=== PATIENT | female | born 1950 | race Caucasian/White ===

== ENCOUNTER 2018-11-12 12:43 | Emergency (ER) | payer MEDICARE, MEDICAID ==
[~2018-11-12] VITALS: Ht 154.9 cm; Wt 54.0 kg
[~2018-11-12 12:43] MED LIST: ASPI-1159 PO; BENA40TA9 PO; GLIM4TAB2 PO; METF-416 PO; RISP1TAB26 PO; SERT-112 PO; SIMV40TA5 PO; TRAZ-213 PO
[2018-11-12 12:58] VITALS: BP 135/87
[2018-11-12] MEDS ORDERED: BACITRACIN ZINC OINT UDPKT TOP ONE (16:00)
[2018-11-12] MEDS ORDERED: TETANUS, DIPHTHERIA, PERTUSSIS VAC/PF 0.5ML (>7YR OLD) IM ONE (16:00)
[2018-11-12] MEDS ORDERED: LIDOCAINE HCL/PF 1% 10 MG/ML 5ML VIAL IJ ONE (16:00)
== END 2018-11-12 17:04 | disposition home or self-care (01) ==
LOC: ER 12:43
DX: S61.216A Laceration without foreign body of right little finger without damage to nail, initial encounter (principal); F32.9 Major depressive disorder, single episode, unspecified; I10 Essential (primary) hypertension; E11.9 Type 2 diabetes mellitus without complications; J45.909 Unspecified asthma, uncomplicated; E78.00 Pure hypercholesterolemia, unspecified; Z79.899 Other long term (current) drug therapy; Z98.51 Tubal ligation status; W27.8XXA Contact with other nonpowered hand tool, initial encounter; Y93.89 Activity, other specified; Y92.89 Other specified places as the place of occurrence of the external cause; Y99.8 Other external cause status
CPT/HCPCS: 12001; 90471; 90715; 99283; J3490

== ENCOUNTER 2018-11-16 14:43 | Emergency (ER) | payer MEDICARE, MEDICAID ==
[~2018-11-16] VITALS: Ht 154.9 cm; Wt 54.0 kg
[2018-11-16 14:57] VITALS: BP 105/55
== END 2018-11-16 16:05 | disposition left against medical advice (07) ==
LOC: ER 14:43
DX: Z53.21 Procedure and treatment not carried out due to patient leaving prior to being seen by health care provider (principal)

== ENCOUNTER 2018-11-24 09:02 | Emergency (ER) | payer MEDICARE, MEDICAID ==
[~2018-11-24] VITALS: Ht 154.9 cm; Wt 63.0 kg
[~2018-11-24 09:02] MED LIST changes: -ASPI-1159 PO; +ASPI-1393 PO
[2018-11-24 10:20] VITALS: BP 120/60
== END 2018-11-24 10:22 | disposition home or self-care (01) ==
LOC: ER 09:02
DX: S61.411D Laceration without foreign body of right hand, subsequent encounter (principal); X58.XXXD Exposure to other specified factors, subsequent encounter; J45.909 Unspecified asthma, uncomplicated; F32.9 Major depressive disorder, single episode, unspecified; E11.9 Type 2 diabetes mellitus without complications; E78.00 Pure hypercholesterolemia, unspecified; I10 Essential (primary) hypertension; Z98.51 Tubal ligation status; Z79.82 Long term (current) use of aspirin; Z79.899 Other long term (current) drug therapy
CPT/HCPCS: 99282

== ENCOUNTER → 2018-12-10 | Outpatient (CLI) | payer MEDICARE, MEDICAID ==
[2018-12-13 17:09] LABS: QFT MITOGEN VALUE >10.00 IU/mL (.); QFT TB GOLD PLUS Positive (Negative); QFT TB1 AG VALUE 0.47 IU/mL (.)
== END | disposition home or self-care (01) ==
LOC: LAB 11:12
PROVIDERS: ATTEND Internal Medicine Critical Care Medicine
DX: A51.9 Early syphilis, unspecified (principal)
CPT/HCPCS: 86480

== ENCOUNTER 2021-03-06 16:11 | Emergency (ER) | payer MEDICARE, MEDICAID ==
[~2021-03-06] VITALS: Ht 154.9 cm; Wt 52.0 kg
[~2021-03-06 16:11] MED LIST changes: -ASPI-1393 PO; +ASPI-1497 PO; -GLIM4TAB2 PO; +GLIM4TAB36 PO; -RISP1TAB26 PO; +RISP1TAB97 PO; +SIMV-46 PO; -SIMV40TA5 PO; -TRAZ-213 PO; +TRAZ-252 PO
[2021-03-06 16:24] VITALS: BP 142/67
[2021-03-06] MEDS ORDERED: DOCU-138 MT (16:47)
== END 2021-03-06 17:05 | disposition home or self-care (01) ==
LOC: ER 16:11
DX: K64.4 Residual hemorrhoidal skin tags (principal); E78.00 Pure hypercholesterolemia, unspecified; E11.9 Type 2 diabetes mellitus without complications; I10 Essential (primary) hypertension; J45.909 Unspecified asthma, uncomplicated; Z79.82 Long term (current) use of aspirin; Z79.899 Other long term (current) drug therapy; Z98.51 Tubal ligation status; Z98.890 Other specified postprocedural states
CPT/HCPCS: 99282

== ENCOUNTER 2022-01-19 02:36 | Emergency (ER) | payer MEDICARE, MEDICAID ==
[~2022-01-19] VITALS: Ht 162.6 cm; Wt 59.0 kg
[~2022-01-19 02:36] MED LIST changes: -BENA40TA9 PO; +BENA40TA91 PO; +DOCU-138 MT
[2022-01-19 02:49] VITALS: BP 131/76
== END 2022-01-19 05:45 | disposition left against medical advice (07) ==
LOC: ER 02:36
DX: Z53.21 Procedure and treatment not carried out due to patient leaving prior to being seen by health care provider (principal)

== ENCOUNTER 2023-02-06 16:52 | Emergency (ER) | payer MEDICARE, MEDICAID ==
[~2023-02-06] VITALS: Ht 154.9 cm; Wt 51.0 kg
[2023-02-06 17:12] VITALS: BP 126/58; PULSE 82; RESP 16; TEMP 98; O2SAT 100
[2023-02-06] MEDS ORDERED: CEFTRIAXONE SODIUM 500 MG/VIAL IM ONE (21:30)
[2023-02-06 22:08] LABS: CLARITY URINE CLEAR (CLEAR); COLOR URINE YELLOW (YELLOW); KETONES URINE NEGATIVE (NEGATIVE); LEUKOCYTE ESTERASE URINE 1+ (NEGATIVE); NITRITE URINE POSITIVE (NEGATIVE); OCCULT BLOOD URINE NEGATIVE (NEGATIVE); PH URINE 5.5 (4.5-8.0); PROTEIN URINE NEGATIVE (NEGATIVE); SPECIFIC GRAVITY URINE 1.019 (1.005-1.030); UROBILINOGEN URINE 0.2 E.U./dL (0.2-1.0)
[2023-02-06] MEDS ORDERED: NITR-87 MT (22:23)
[2023-02-06] MEDS ORDERED: METR-167 MT (22:23)
[2023-02-06] MEDS ORDERED: DOXY100T2 MT (22:23)
[2023-02-08 13:07] LABS: HIV SCREEN 4G Non Reactive (Non Reactive)
[2023-02-09 04:07] LABS: NEISSERIA GONORRHOEAE NAA Negative (Negative)
== END 2023-02-06 23:28 | disposition home or self-care (01) ==
LOC: ER 16:52
DX: N39.0 Urinary tract infection, site not specified (principal); N73.9 Female pelvic inflammatory disease, unspecified; J45.909 Unspecified asthma, uncomplicated; F32.9 Major depressive disorder, single episode, unspecified; E11.9 Type 2 diabetes mellitus without complications; E78.00 Pure hypercholesterolemia, unspecified; I10 Essential (primary) hypertension; A64 Unspecified sexually transmitted disease; T74.21XA Adult sexual abuse, confirmed, initial encounter; X58.XXXA Exposure to other specified factors, initial encounter; Z98.51 Tubal ligation status; Z79.899 Other long term (current) drug therapy
CPT/HCPCS: 99283; 86592; 87491; 87591; 81003; 87210; 87389; 96372; J0696

== ENCOUNTER 2024-01-06 09:40 | Emergency (ER) | payer MEDICARE, MEDICAID ==
[~2024-01-06] VITALS: Ht 162.6 cm; Wt 70.0 kg
[~2024-01-06 09:40] MED LIST changes: +DOXY100T2 MT; +METR-167 MT; +NITR-87 MT; +RISP-28 PO; -RISP1TAB97 PO
[2024-01-06 09:41] VITALS: O2SAT 100
[2024-01-06] MEDS: ACETAMINOPHEN 325MG TABLET PO ONE (11:51)
[2024-01-06 12:37] VITALS: BP 127/45; PULSE 64; RESP 15; TEMP 97.7
== END 2024-01-06 12:38 | disposition home or self-care (01) ==
LOC: ER 09:53
DX: R55 Syncope and collapse (principal); J45.909 Unspecified asthma, uncomplicated; F32.9 Major depressive disorder, single episode, unspecified; E11.9 Type 2 diabetes mellitus without complications; E78.00 Pure hypercholesterolemia, unspecified; I10 Essential (primary) hypertension; Z98.51 Tubal ligation status; Z79.899 Other long term (current) drug therapy; W18.39XA Other fall on same level, initial encounter; Y93.89 Activity, other specified; Y92.89 Other specified places as the place of occurrence of the external cause; Y99.8 Other external cause status
CPT/HCPCS: 99284